=== PATIENT | female | born 1980 | race Asian ===

== ENCOUNTER 2020-10-13 02:48 | Emergency (ER) | payer OTHER ==
[~2020-10-13] VITALS: Ht 162.6 cm; Wt 136.1 kg
[2020-10-13 03:33] LABS: PLATELET COUNT 243 K/uL (152-353)
[2020-10-13 03:38] LABS: POTASSIUM 3.7 mmol/L (3.6-5.2)
[2020-10-13 04:45] VITALS: BP 131/77; TEMP 98.3
== END 2020-10-13 04:45 | disposition home or self-care (01) ==
LOC: ED 02:48
PROVIDERS: Emergency Medicine Emergency Medical Services
DX: R10.11 Right upper quadrant pain (principal); R10.13 Epigastric pain
CPT/HCPCS: 36415; 80053; 81000; 81025; 82150; 83690; 85007; 85027; 96360; 96375; 99284; J1885; J2405; J3490; Q9963

== ENCOUNTER 2020-11-28 10:18 | Outpatient (CLI) | payer OTHER | END 2020-11-28 19:50 | disposition home or self-care (01) | LOC: RAD 10:18 | PROVIDERS: ATTEND Nurse Practitioner Family | DX: M67.432 Ganglion, left wrist (principal) ==

== ENCOUNTER 2021-02-09 17:50 | Emergency (ER) | payer OTHER ==
[~2021-02-09] VITALS: Ht 162.6 cm; Wt 136.1 kg
[2021-02-09 18:38] LABS: PLATELET COUNT 229 K/uL (152-353)
[2021-02-09 18:48] LABS: POTASSIUM 3.8 mmol/L (3.6-5.2)
[2021-02-09 22:00] VITALS: BP 135/70; TEMP 98.1
== END 2021-02-09 22:00 | disposition short-term general hospital (02) ==
LOC: ED 17:50
PROVIDERS: Hospitalist
DX: K35.890 Other acute appendicitis without perforation or gangrene (principal); Z03.818 Encounter for observation for suspected exposure to other biological agents ruled out
CPT/HCPCS: 80053; 81000; 81025; 82150; 83690; 85008; 85027; 85610; 85730; 87635; 96360; 96365; 96375; 99284; J1170; J1885; J2405; J2543; Q9963; U0003

== ENCOUNTER 2021-12-09 11:48 | Outpatient (CLI) | payer OTHER | END 2021-12-09 18:56 | disposition home or self-care (01) | LOC: NM 11:48 | PROVIDERS: ATTEND Nurse Practitioner Family | DX: R11.0 Nausea (principal); R19.5 Other fecal abnormalities; K52.89 Other specified noninfective gastroenteritis and colitis; Z87.19 Personal history of other diseases of the digestive system; Z09 Encounter for follow-up examination after completed treatment for conditions other than malignant neoplasm | CPT/HCPCS: A9537 ==

== ENCOUNTER 2022-05-26 17:58 | Emergency (ER) | payer OTHER ==
[~2022-05-26] VITALS: Ht 162.6 cm; Wt 142.9 kg
[2022-05-26 19:00] VITALS: BP 145/90; TEMP 98.2
== END 2022-05-26 19:05 | disposition home or self-care (01) ==
LOC: ED 17:58
DX: T40.2X5A Adverse effect of other opioids, initial encounter (principal); L29.8 Other pruritus; X58.XXXA Exposure to other specified factors, initial encounter; Y92.89 Other specified places as the place of occurrence of the external cause; Z98.890 Other specified postprocedural states
CPT/HCPCS: 96372; 99283; J1200; J2930

== ENCOUNTER 2022-05-28 09:04 | Outpatient (CLI) | payer OTHER | END 2022-05-28 19:24 | disposition home or self-care (01) | LOC: US 09:04 | PROVIDERS: ATTEND Nurse Practitioner Family | DX: R22.1 Localized swelling, mass and lump, neck (principal) ==

== ENCOUNTER 2022-08-20 19:52 | Outpatient (CLI) | payer OTHER | END 2022-08-20 22:04 | disposition home or self-care (01) | LOC: RESP 19:52 | DX: E66.01 Morbid (severe) obesity due to excess calories (principal) | CPT/HCPCS: 93005 ==

== ENCOUNTER 2022-11-29 10:28 | Emergency (ER) | payer OTHER ==
[~2022-11-29] VITALS: Ht 162.6 cm; Wt 140.6 kg
[2022-11-29 11:45] LABS: PLATELET COUNT 221 K/uL (152-353)
[2022-11-29 11:48] LABS: POTASSIUM 3.4 mmol/L (3.6-5.2)
[2022-11-29 11:59] LABS: PARTIAL THROMBOPLASTIN TIME 28.6 SECONDS (24.5-33.6)
[2022-11-29 13:45] VITALS: BP 148/79; TEMP 97.6
== END 2022-11-29 13:45 | disposition home or self-care (01) ==
LOC: ED 10:28
PROVIDERS: Emergency Medicine
DX: K85.90 Acute pancreatitis without necrosis or infection, unspecified (principal)
CPT/HCPCS: 36415; 80053; 83690; 84484; 85027; 85379; 85610; 85730; 96365; 96374; 96375; 99284; J2270; J2405; J3490; Q9963

== ENCOUNTER 2022-12-16 16:05 | Outpatient (CLI) | payer OTHER | END 2022-12-16 19:34 | disposition home or self-care (01) | LOC: RAD 16:05 | PROVIDERS: ATTEND Nurse Practitioner Family | DX: I10 Essential (primary) hypertension (principal) ==

== ENCOUNTER 2023-02-22 13:12 | Outpatient (CLI) | payer OTHER | END 2023-02-22 19:02 | disposition home or self-care (01) | LOC: RESP 13:12 → MRI 14:00 → RESP 19:02 | PROVIDERS: ATTEND Family Medicine | DX: Z01.818 Encounter for other preprocedural examination (principal); M54.16 Radiculopathy, lumbar region; I10 Essential (primary) hypertension ==